=== PATIENT | male | born 1955 | race Caucasian/White ===

== ENCOUNTER 2016-05-10 05:35 | Emergency (ER) | payer OTHER ==
--- NOTE | 2016-05-11 02:30 | ED MAR SUMMARY ---
..... Medication Administration Record [facility] [address] [place], [place] [id number] Patient: TATYANA MATTHEWS Visit ID: [id number] 60y, M Weight: 113.3 kg Height/Length: 69 in BMI: 36.9 ALLERGIES: CONTRAST DYE
--- NOTE | 2016-05-11 02:30 | ED NURSING NOTES ---
Clinical Report - Nurses [facility] [address] [place] [address] 05/10/2016 5:37 Patient: TATYANA MATTHEWS TRIAGE Triage time 05:46. Acuity: LEVEL 4. Chief Complaint: RIGHT LOWER EXTREMITY PAIN. Location of symptoms- right hip. 05:50. Alert. --05:50 Andrea Jiménez R.N. 05:44 05/10/16. BP: 175/86. HR: 71. RR: 15. O2 saturation: 97% on room air. Temp: 99 F (oral). Pain level now: 10/12. --05:50 Andrea Jiménez R.N. Weight: 113.3 kg stated. Height/Length: 69 inches Per Patient. BMI: 36.9. --05:48 Andrea Jiménez R.N. Medications HCTZ 25mg, daily. --05:47 Andrea Jiménez R.N. Omeprazole Oral 40 mg, daily. --05:47 Andrea Jiménez R.N. Allergies CONTRAST DYE. --05:47 Andrea Jiménez R.N. History Arrived by private vehicle. Historian: patient. Unaccompanied. Primary physician (Rosaline). No injury occurred. This occurred (Started Sunday PM). 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 PAST MEDICAL HX: Tetanus status: up-to-date. Immunizations: up-to-date. SOCIAL HX: Never smoker. Occasional alcohol use. No drug use. No infectious disease exposure. ABUSE ASSESSMENT: No report of abuse. FALL RISK ASSESSMENT: Fall risk assessment completed. No fall risk identified. NUTRITIONAL RISK ASSESSMENT: The nutritional risk assessment revealed no deficiencies. FUNCTIONAL ASSESSMENT: Functional assessment: no impairments noted. LEARNING NEEDS ASSESSMENT: The learning needs assessment revealed no barriers. SKIN INTEGRITY ASSESSMENT: Skin integrity risk assessment completed. No skin integrity risk identified. --05:50 Andrea Jiménez R.N. PROBLEMS: Bronchitis. Prostatitis. Gastroesophageal Reflux Disease. Hypertension. --05:48 Andrea Jiménez R.N. ADDITIONAL SURGERIES: Tonsillectomy. --05:48 Andrea Jiménez R.N. Interventions ID band on patient. To treatment room. --05:50 Andrea Jiménez R.N. PHYSICAL ASSESSMENT 05:51. Ambulatory to room. Patient gowned. GENERAL / NEURO / PSYCH: Oriented X 4. Alert. EXTREMITIES: Neuro-vascular status intact to the extremity. SKIN: Skin intact. Skin is warm and dry. --05:51 Andrea Jiménez R.N. NURSING PROGRESS NOTES 05:51. Two patient identifiers checked. Call light placed in reach. Bed placed in lowest position. Brakes of bed on. Patient ready for evaluation- chart flagged. --05:51 Andrea Jiménez R.N. 06:10. The patient is calm and resting quietly. GENERAL / NEURO / PSYCH: Alert. Oriented X 4. RESPIRATORY: No respiratory distress. EXTREMITIES: Neuro-vascular status intact to the extremities. SKIN: Skin is warm and dry. --06:11 Andrea Jiménez R.N. DISPOSITION / DISCHARGE Departure time: 06:12. Condition at departure: stable. No learning barriers present. Discharge instructions provided and reviewed with the patient. Reviewed medication(s) side effects, precautions, dosing and course information. Prescription(s) given to the patient. Patient verbalized understanding. Written instructions provided in Telugu. The patient was discharged home and unaccompanied at time of discharge. He left the Emergency Department ambulatory and via private vehicle. Patient driving. FALL RISK ASSESSMENT: Fall risk assessment completed. No fall risk identified. --06:11 Andrea Jiménez R.N. 06:09 05/10/16. BP: 153/78. HR: 65. RR: 14. O2 saturation: 96% on room air. Pain level now: 09/11. --06:11 Andrea Jiménez R.N. ( Dr. Alba aware of pt BP prior to discharge). --06:12 Andrea Jiménez R.N. Locked/Released at 05/10/2016 6:18 by Andrea Jiménez R.N.
--- NOTE | 2016-05-11 02:30 | ED MAR SUMMARY ---
..... Medication Administration Record [facility] [address] [place], [place] [id number] Patient: TATYANA MATTHEWS Visit ID: [id number] 60y, M Weight: 113.3 kg Height/Length: 69 in BMI: 36.9 ALLERGIES: CONTRAST DYE
--- NOTE | 2016-05-11 02:30 | ED NURSING NOTES ---
Clinical Report - Nurses [facility] [address] [place] [address] 05/10/2016 5:37 Patient: TATYANA MATTHEWS TRIAGE Triage time 05:46. Acuity: LEVEL 4. Chief Complaint: RIGHT LOWER EXTREMITY PAIN. Location of symptoms- right hip. 05:50. Alert. --05:50 Andrea Jiménez R.N. 05:44 05/10/16. BP: 175/86. HR: 71. RR: 15. O2 saturation: 97% on room air. Temp: 99 F (oral). Pain level now: 10/12. --05:50 Andrea Jiménez R.N. Weight: 113.3 kg stated. Height/Length: 69 inches Per Patient. BMI: 36.9. --05:48 Andrea Jiménez R.N. Medications HCTZ 25mg, daily. --05:47 Andrea Jiménez R.N. Omeprazole Oral 40 mg, daily. --05:47 Andrea Jiménez R.N. Allergies CONTRAST DYE. --05:47 Andrea Jiménez R.N. History Arrived by private vehicle. Historian: patient. Unaccompanied. Primary physician (Rosaline). No injury occurred. This occurred (Started Sunday PM). 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 PAST MEDICAL HX: Tetanus status: up-to-date. Immunizations: up-to-date. SOCIAL HX: Never smoker. Occasional alcohol use. No drug use. No infectious disease exposure. ABUSE ASSESSMENT: No report of abuse. FALL RISK ASSESSMENT: Fall risk assessment completed. No fall risk identified. NUTRITIONAL RISK ASSESSMENT: The nutritional risk assessment revealed no deficiencies. FUNCTIONAL ASSESSMENT: Functional assessment: no impairments noted. LEARNING NEEDS ASSESSMENT: The learning needs assessment revealed no barriers. SKIN INTEGRITY ASSESSMENT: Skin integrity risk assessment completed. No skin integrity risk identified. --05:50 Andrea Jiménez R.N. PROBLEMS: Bronchitis. Prostatitis. Gastroesophageal Reflux Disease. Hypertension. --05:48 Andrea Jiménez R.N. ADDITIONAL SURGERIES: Tonsillectomy. --05:48 Andrea Jiménez R.N. Interventions ID band on patient. To treatment room. --05:50 Andrea Jiménez R.N. PHYSICAL ASSESSMENT 05:51. Ambulatory to room. Patient gowned. GENERAL / NEURO / PSYCH: Oriented X 4. Alert. EXTREMITIES: Neuro-vascular status intact to the extremity. SKIN: Skin intact. Skin is warm and dry. --05:51 Andrea Jiménez R.N. NURSING PROGRESS NOTES 05:51. Two patient identifiers checked. Call light placed in reach. Bed placed in lowest position. Brakes of bed on. Patient ready for evaluation- chart flagged. --05:51 Andrea Jiménez R.N. 06:10. The patient is calm and resting quietly. GENERAL / NEURO / PSYCH: Alert. Oriented X 4. RESPIRATORY: No respiratory distress. EXTREMITIES: Neuro-vascular status intact to the extremities. SKIN: Skin is warm and dry. --06:11 Andrea Jiménez R.N. DISPOSITION / DISCHARGE Departure time: 06:12. Condition at departure: stable. No learning barriers present. Discharge instructions provided and reviewed with the patient. Reviewed medication(s) side effects, precautions, dosing and course information. Prescription(s) given to the patient. Patient verbalized understanding. Written instructions provided in Azeri. The patient was discharged home and unaccompanied at time of discharge. He left the Emergency Department ambulatory and via private vehicle. Patient driving. FALL RISK ASSESSMENT: Fall risk assessment completed. No fall risk identified. --06:11 Andrea Jiménez R.N. 06:09 05/10/16. BP: 153/78. HR: 65. RR: 14. O2 saturation: 96% on room air. Pain level now: 09/11. --06:11 Andrea Jiménez R.N. ( Dr. Alba aware of pt BP prior to discharge). --06:12 Andrea Jiménez R.N. Locked/Released at 05/10/2016 6:18 by Andrea Jiménez R.N.
--- NOTE | 2016-05-11 02:30 | ED DISCHARGE INSTRUCTIONS ---
Patient: TATYANA MATTHEWS General Instructions [facility] VisitID: [id number] [address] [place] [address] 60y, M Registration Date/Time: 05/10/2016 Acute lumbar strain. Essential hypertension. INSTRUCTIONS Apply ice. No driving or operating machinery (while taking opiate medications or flexeril). Do not work for three days. Warnings: CONTROLLED SUBSTANCE WARNINGS. Further evaluation is necessary in order to conduct further tests (You may need an MRI of your back and / or physical therapy if not improving as expected - to be arranged by your primary care provider). It is very important to follow up with a physician. GENERAL WARNINGS: Return or contact your physician immediately if your condition worsens or changes unexpectedly, if not improving as expected, or if other problems arise. Your Current Medications: CONTINUE TAKING THE FOLLOWING MEDICATIONS: HCTZ* : 25mg daily. Omeprazole Oral : 40 mg daily. Prescription Medications: Hydrocodone/APAP 5mg / 325mg: take 1-2 orally every 8 hours as needed for pain. Dispense ten (10). No refill. Flexeril 10 mg: Take 1 orally every 8 hours as needed for muscle spasm. Dispense twenty (20). No refills. Substitution is permissible. Prednisone 20 mg: take 3 orally every day for 5 days. Dispense fifteen (15). No refills. OTC Medications: Acetaminophen (available over the counter): take according to label instructions. Motrin (available over the counter): take according to label instructions. Follow-up: Screening today revealed the patient's blood pressure to be in the hypertensive range. The patient should follow up with a primary care provider for blood pressure management. Follow-up with: Lamont Rhodes MD, [facility], , [address] [place], [place] [id number] Follow up in about two days. ADDITIONAL INFORMATION Back Pain [Acute Or Chronic] Back pain is usually caused by an injury to the muscles or ligaments of the spine. Sometimes the disks that separate each bone in the spine may bulge and cause pain by pressing on a nearby nerve. Back pain may also appear after a sudden twisting/bending force (such as in a car accident), after a simple awkward movement, or lifting something heavy with poor body positioning. In either case, muscle spasm is often present and adds to the pain. Acute back pain usually gets better in one to two weeks. Back pain related to disk disease, arthritis in the spinal joints or spinal stenosis (narrowing of the spinal canal) can become chronic and last for months or years. Unless you had a physical injury (for example, a car accident or fall) X-rays are usually not ordered for the initial evaluation of back pain. If pain continues and does not respond to medical treatment, x-rays and other tests may be performed at a later time. Home Care: You may need to stay in bed the first few days. But, as soon as possible, begin sitting or walking to avoid problems with prolonged bed rest (muscle weakness, worsening back stiffness and pain, blood clots in the legs). When in bed, try to find a position of comfort. A firm mattress is best. Try lying flat on your back with pillows under your knees. You can also try lying on your side with your knees bent up towards your chest and a pillow between your knees. Avoid prolonged sitting. This puts more stress on the lower back than standing or walking. During the first two days after injury, apply an ICE PACK to the painful area for 20 minutes every 2-4 hours. This will reduce swelling and pain. HEAT (hot shower, hot bath or heating pad) works well for muscle spasm. You can start with ice, then switch to heat after two days. Some patients feel best alternating ice and heat treatments. Use the one method that feels the best to you. You may use acetaminophen (Tylenol) or ibuprofen (Motrin, Advil) to control pain, unless another pain medicine was prescribed. [NOTE: If you have chronic liver or kidney disease or ever had a stomach ulcer or GI bleeding, talk with your doctor before using these medicines.] Be aware of safe lifting methods and do not lift anything over 15 pounds until all the pain is gone. Follow Up with your doctor or this facility if your symptoms do not start to improve after one week. Physical therapy may be needed. [NOTE: If X-rays were taken, they will be reviewed by a radiologist. You will be notified of any new findings that may affect your care.] Get Prompt Medical Attention if any of the following occur: Pain becomes worse or spreads to your legs Weakness or numbness in one or both legs Loss of bowel or bladder control Numbness in the groin or genital area High Blood Pressure --Established High Blood Pressure (Hypertension) is a chronic disease. The cause is unknown in most cases. It can usually be controlled with lifestyle changes and/or medicines. Symptoms of high blood pressure may include headache, dizziness, visual changes, chest pain and shortness of breath. Sometimes it causes no symptoms at all. However, even if there are no symptoms, untreated high blood pressure increases the risk of heart attack, also known as acute myocardial infarction, or AMI, and stroke. It is a serious health risk and should not be ignored. A normal blood pressure is 120/80 or less. The first (top) number is the "systolic" pressure. The second (bottom) number is the "diastolic" pressure. Hypertension exists when either the top number is 140 or higher, OR the bottom number is 90 or higher on repeated measurements. Home Care: All patients with high blood pressure should do the following to lower their pressure. If you are on medicines, then these methods may reduce or eliminate your need for medicines in the future. Begin a weight loss program if you are overweight. Reduce your salt intake. Avoid high salt foods (olives, pickles, smoked meats, salted potato chips, etc.). Do not add salt to your food at the table. Use only small amounts of salt when cooking. Begin an exercise program. Discuss with your doctor what type of exercise program would be best for you. It doesn't have to be difficult. Even brisk walking for 20 minutes three times a week is a good form of exercise. Avoid medicines which contain heart stimulants. This includes many cold and sinus decongestant pills and sprays as well as diet pills. Check the warnings about hypertension on the label. Stimulants such as amphetamine or cocaine could be lethal for someone with hypertension. Never take these. Limit your caffeine intake or switch to caffeine-free products. Stop smoking. If you are a long-time smoker, this can be hard. Enroll in a stop-smoking program to improve your chance of success. Learning how to handle stress better is an important part of any program to lower blood pressure. Learn about relaxation methods such as meditation, yoga or biofeedback. If medicines were prescribed, take them exactly as directed. Missing doses may cause your blood pressure get out of control. Consider buying an automatic blood pressure machine (available at most pharmacies). Use this to monitor your blood pressure at home and report the results to your doctor. Follow Up: Regular visits to your own physician for blood pressure checks and medicine adjustment is an important part of your care. Make a follow-up appointment as directed by our staff. Get Prompt Medical Attention if any of the following occur: Chest pain or shortness of breath Severe headache Throbbing or rushing sound in the ears Nosebleed Sudden severe abdominal pain Extreme drowsiness, confusion or fainting Dizziness or vertigo (dizziness with spinning sensation) Weakness of an arm or leg or one side of the face Difficulty with speech or vision Hydrocodone Bitartrate, Acetaminophen Oral tablet What is this medicine? ACETAMINOPHEN; HYDROCODONE (a set a ALEXANDRA scottie fen; michael droe KOE done) is a pain reliever. It is used to treat mild to moderate pain. How should I use this medicine? Take this medicine by mouth. Swallow it with a full glass of water. Follow the directions on the prescription label. If the medicine upsets your stomach, take the medicine with food or milk. Do not take more than you are told to take. Talk to your service dog trainer regarding the use of this medicine in children. This medicine is not approved for use in children. What side effects may I notice from receiving this medicine? Side effects that you should report to your doctor or health child care as soon as possible: allergic reactions like skin rash, itching or hives, swelling of the face, lips, or tongue breathing problems confusion feeling faint or lightheaded, falls stomach pain yellowing of the eyes or skin Side effects that usually do not require medical attention (report to your doctor or health child care if they continue or are bothersome): nausea, vomiting stomach upset What may interact with this medicine? alcohol antihistamines isoniazid medicines for depression, anxiety, or psychotic disturbances medicines for sleep muscle relaxants naltrexone narcotic medicines (opiates) for pain phenobarbital ritonavir tramadol What if I miss a dose? If you miss a dose, take it as soon as you can. If it is almost time for your next dose, take only that dose. Do not take double or extra doses. Where should I keep my medicine? Keep out of the reach of children. This medicine can be abused. Keep your medicine in a safe place to protect it from theft. Do not share this medicine with anyone. Selling or giving away this medicine is dangerous and against the law. Store at room temperature between 15 and 30 degrees C (59 and 86 degrees F). Protect from light. Keep container tightly closed. Throw away any unused medicine after the expiration date. Discard unused medicine and used packaging carefully. Pets and children can be harmed if they find used or lost packages. What should I tell my health care provider before I take this medicine? They need to know if you have any of these conditions: brain tumor Crohn's disease, inflammatory bowel disease, or ulcerative colitis drink more than 3 alcohol-containing drinks per day drug abuse or addiction head injury heart or circulation problems kidney disease or problems going to the bathroom liver disease lung disease, asthma, or breathing problems an unusual or allergic reaction to acetaminophen, hydrocodone, other opioid analgesics, other medicines, foods, dyes, or preservatives or trying to get breast-feeding What should I watch for while using this medicine? Tell your doctor or health child care if your pain does not go away, if it gets worse, or if you have new or a different type of pain. You may develop tolerance to the medicine. Tolerance means that you will need a higher dose of the medicine for pain relief. Tolerance is normal and is expected if you take the medicine for a long time. Do not suddenly stop taking your medicine because you may develop a severe reaction. Your body becomes used to the medicine. This does NOT mean you are addicted. Addiction is a behavior related to getting and using a drug for a non-medical reason. If you have pain, you have a medical reason to take pain medicine. Your doctor will tell you how much medicine to take. If your doctor wants you to stop the medicine, the dose will be slowly lowered over time to avoid any side effects. You may get drowsy or dizzy when you first start taking the medicine or change doses. Do not drive, use machinery, or do anything that may be dangerous until you know how the medicine affects you. Stand or sit up slowly. There are different types of narcotic medicines (opiates) for pain. If you take more than one type at the same time, you may have more side effects. Give your health care provider a list of all medicines you use. Your doctor will tell you how much medicine to take. Do not take more medicine than directed. Call emergency for help if you have problems breathing. The medicine will cause constipation. Try to have a bowel movement at least every 2 to 3 days. If you do not have a bowel movement for 3 days, call your doctor or health child care. Too much acetaminophen can be very dangerous. Do not take Tylenol (acetaminophen) or medicines that contain acetaminophen with this medicine. Many non-prescription medicines contain acetaminophen. Always read the labels carefully. Cyclobenzaprine Hydrochloride Oral tablet What is this medicine? CYCLOBENZAPRINE (zeinab dimas) is a muscle relaxer. It is used to treat muscle pain, spasms, and stiffness. How should I use this medicine? Take this medicine by mouth with a glass of water. Follow the directions on the prescription label. If this medicine upsets your stomach, take it with food or milk. Take your medicine at regular intervals. Do not take it more often than directed. Talk to your service dog trainer regarding the use of this medicine in children. Special care may be needed. What side effects may I notice from receiving this medicine? Side effects that you should report to your doctor or health child care as soon as possible: allergic reactions like skin rash, itching or hives, swelling of the face, lips, or tongue chest pain fast heartbeat hallucinations seizures vomiting Side effects that usually do not require medical attention (report to your doctor or health child care if they continue or are bothersome): headache What may interact with this medicine? Do not take this medicine with any of the following medications: cisapride droperidol flecainide grepafloxacin halofantrine levomethadyl MAOIs like Carbex, Eldepryl, Marplan, Nardil, and Parnate nilotinib pimozide probucol sertindole This medicine may also interact with the following medications: abarelix alcohol contrast dyes dolasetron guanethidine medicines for cancer medicines for depression, anxiety, or psychotic disturbances medicines to treat an irregular heartbeat medicines used for sleep or numbness during surgery or procedure methadone octreotide ondansetron palonosetron phenothiazines like chlorpromazine, mesoridazine, prochlorperazine, thioridazine some medicines for infection like alfuzosin, chloroquine, clarithromycin, levofloxacin, mefloquine, pentamidine, troleandomycin tramadol vardenafil What if I miss a dose? If you miss a dose, take it as soon as you can. If it is almost time for your next dose, take only that dose. Do not take double or extra doses. Where should I keep my medicine? Keep out of the reach of children. Store at room temperature between 15 and 30 degrees C (59 and 86 degrees F). Keep container tightly closed. Throw away any unused medicine after the expiration date. What should I tell my health care provider before I take this medicine? They need to know if you have any of these conditions: heart disease, irregular heartbeat, or previous heart attack liver disease thyroid problem an unusual or allergic reaction to cyclobenzaprine, tricyclic antidepressants, lactose, other medicines, foods, dyes, or preservatives or trying to get breast-feeding What should I watch for while using this medicine? Check with your doctor or health child care if your condition does not improve within 1 to 3 weeks. You may get drowsy or dizzy when you first start taking the medicine or change doses. Do not drive, use machinery, or do anything that may be dangerous until you know how the medicine affects you. Stand or sit up slowly. Your mouth may get dry. Drinking water, chewing sugarless gum, or sucking on hard candy may help. Prednisone Oral tablet What is this medicine? PREDNISONE (PRED ni sone) is a corticosteroid. It is commonly used to treat inflammation of the skin, joints, lungs, and other organs. Common conditions treated include asthma, allergies, and arthritis. It is also used for other conditions, such as blood disorders and diseases of the adrenal glands. How should I use this medicine? Take this medicine by mouth with a glass of water. Follow the directions on the prescription label. Take this medicine with food. If you are taking this medicine once a day, take it in the morning. Do not take more medicine than you are told to take. Do not suddenly stop taking your medicine because you may develop a severe reaction. Your doctor will tell you how much medicine to take. If your doctor wants you to stop the medicine, the dose may be slowly lowered over time to avoid any side effects. Talk to your service dog trainer regarding the use of this medicine in children. Special care may be needed. What side effects may I notice from receiving this medicine? Side effects that you should report to your doctor or health child care as soon as possible: allergic reactions like skin rash, itching or hives, swelling of the face, lips, or tongue changes in emotions or moods changes in vision depressed mood eye pain fever or chills, cough, sore throat, pain or difficulty passing urine increased thirst swelling of ankles, feet Side effects that usually do not require medical attention (report to your doctor or health child care if they continue or are bothersome): confusion, excitement, restlessness headache nausea, vomiting skin problems, acne, thin and shiny skin trouble sleeping weight gain What may interact with this medicine? Do not take this medicine with any of the following medications: metyrapone mifepristone This medicine may also interact with the following medications: aminoglutethimide amphotericin B aspirin and aspirin-like medicines barbiturates certain medicines for diabetes, like glipizide or glyburide cholestyramine cholinesterase inhibitors cyclosporine digoxin diuretics ephedrine female hormones, like estrogens and control pills isoniazid ketoconazole NSAIDS, medicines for pain and inflammation, like ibuprofen or naproxen phenytoin rifampin toxoids vaccines warfarin What if I miss a dose? If you miss a dose, take it as soon as you can. If it is almost time for your next dose, talk to your doctor or health child care. You may need to miss a dose or take an extra dose. Do not take double or extra doses without advice. Where should I keep my medicine? Keep out of the reach of children. Store at room temperature between 15 and 30 degrees C (59 and 86 degrees F). Protect from light. Keep container tightly closed. Throw away any unused medicine after the expiration date. What should I tell my health care provider before I take this medicine? They need to know if you have any of these conditions: Chelsi's syndrome diabetes glaucoma heart disease high blood pressure infection (especially a virus infection such as chickenpox, cold sores, or herpes) kidney disease liver disease mental illness myasthenia gravis osteoporosis seizures stomach or intestine problems thyroid disease an unusual or allergic reaction to lactose, prednisone, other medicines, foods, dyes, or preservatives or trying to get breast-feeding What should I watch for while using this medicine? Visit your doctor or health child care for regular checks on your progress. If you are taking this medicine over a prolonged period, carry an identification card with your name and address, the type and dose of your medicine, and your doctor's name and address. This medicine may increase your risk of getting an infection. Tell your doctor or health child care if you are around anyone with measles or chickenpox, or if you develop sores or blisters that do not heal properly. If you are going to have surgery, tell your doctor or health child care that you have taken this medicine within the last twelve months. Ask your doctor or health child care about your diet. You may need to lower the amount of salt you eat. This medicine may affect blood sugar levels. If you have diabetes, check with your doctor or health child care before you change your diet or the dose of your diabetic medicine. You have been given the following additional information: Back Pain (Acute Or Chronic) Hypertension, Established Hydrocodone Bitartrate, Acetaminophen Oral tablet Cyclobenzaprine Hydrochloride Oral tablet Prednisone Oral tablet No driving or operating machinery (while taking opiate medications or flexeril). Do not work for three days. (Electronically signed by Florentino Alba DO 05/10/2016 6:22)
--- NOTE | 2016-05-11 02:30 | ED CLINICAL REPORT ---
Clinical Report - Physicians/Mid Levels [facility] [address] [place] [address] 05/10/2016 5:37 Patient: TATYANA MATTHEWS Time Seen: 05:57. Arrived- By private vehicle. Historian- patient. HISTORY OF PRESENT ILLNESS Chief Complaint: BACK PAIN. Onset was yesterday and it is still present. It was gradual in onset and has been waxing/waning. Modifying factors- worsened by walking, rotation of the body, bending over or lifting. Relieved by remaining still. It is described as being moderate in degree and in the area of the right lower lumbar spine, right SI joint and right gluteus. The quality is noted to be "pain" and similar to prior episodes. No radiation. No bladder dysfunction, bowel dysfunction, sensory loss or motor loss. Patient notes the possibility of an injury but denies injury to the head or neck. Mechanism of injury- he was lifting, turning and bending. Occurred at home and work. No other injury. Similar symptoms previously: Recent medical care: Not recently seen/assessed. REVIEW OF SYSTEMS No fever, chills, difficulty with urination, urinary frequency or hematuria. No skin rash, headache, sore throat, cough or difficulty breathing. No chest pain, abdominal pain, nausea, vomiting or diarrhea. No black stools or bloody stools. All systems otherwise negative, except as recorded above. PAST HISTORY PCP: Dr Rhodes Problems: Bronchitis. Prostatitis. "Borderline Asthma" Gastroesophageal Reflux Disease. Ankle Fracture. Hypertension. Sprained ankle. Obstructive Sleep Apnea Surgeries: Tonsillectomy. Medications: Omeprazole Oral 40 mg, daily. HCTZ 25mg, daily. Allergies: CONTRAST DYE. SOCIAL HISTORY Never smoker. Occasional alcohol use. No drug use. ADDITIONAL NOTES The nursing notes have been reviewed. PHYSICAL EXAM Vital Signs: 05/10/2016 05:44 BP: 175/86. HR: 71. RR: 15. O2 saturation: 97%. Temp: 99 F. Pain level now: 8/10. Appearance: Alert. No acute distress. HEENT: Normal external inspection. Eyes: Pupils equal, round and reactive to light. Neck: Normal inspection. Neck nontender. Painless ROM. CVS: Heart sounds normal. Pulses normal. Respiratory: No respiratory distress. Breath sounds normal. Abdomen: No visible injury. Soft and nontender. No mass. Obese. Back: Normal inspection. Moderate soft tissue tenderness in the right lower lumbar area. No vertebral point tenderness. Skin: Skin warm and dry. Normal skin color. No rash. Normal skin turgor. Extremities: Extremities exhibit normal ROM. Extremities nontender. Right hip. Neurovascular intact distally. No tenderness. No limitation in ROM. The right leg is not shortened, externally rotated, internally rotated, flexed or adducted. The right leg is not abducted. Neuro: Oriented X 3. Mood/affect normal. No motor deficit. No sensory deficit. Straight leg raising: negative on the right and negative on the left. Reflexes normal. Reflex exam: right patellar 2+, left patellar 2+, right Achilles 1+ and left Achilles 1+. PROGRESS AND PROCEDURES Course of Care: No signs of cord compression. No reason to suspect spinal / epidural infectious process / discitis. No signs of UTI, stone or AAA. Labs not indicated clinically now. Pt may need PT and / or MRI if not improving as expected - he is informed of this. Given signs and symptoms to watch for and return for. Patient/family counseled. Old ED records reviewed. Disposition: Discharged. Condition: stable and improved. CLINICAL IMPRESSION Acute lumbar strain. Essential hypertension. INSTRUCTIONS Apply ice. No driving or operating machinery (while taking opiate medications or flexeril). Do not work for three days. Warnings: CONTROLLED SUBSTANCE WARNINGS. Further evaluation is necessary in order to conduct further tests (You may need an MRI of your back and / or physical therapy if not improving as expected - to be arranged by your primary care provider). It is very important to follow up with a physician. GENERAL WARNINGS: Return or contact your physician immediately if your condition worsens or changes unexpectedly, if not improving as expected, or if other problems arise. Your Current Medications: CONTINUE TAKING THE FOLLOWING MEDICATIONS: HCTZ* : 25mg daily. Omeprazole Oral : 40 mg daily. Prescription Medications: Hydrocodone/APAP 5mg / 325mg: take 1-2 orally every 8 hours as needed for pain. Dispense ten (10). No refill. Flexeril 10 mg: Take 1 orally every 8 hours as needed for muscle spasm. Dispense twenty (20). No refills. Substitution is permissible. Prednisone 20 mg: take 3 orally every day for 5 days. Dispense fifteen (15). No refills. OTC Medications: Acetaminophen (available over the counter): take according to label instructions. Motrin (available over the counter): take according to label instructions. Follow-up: Screening today revealed the patient's blood pressure to be in the hypertensive range. The patient should follow up with a primary care provider for blood pressure management. Follow-up with: Lamont Rhodes MD, [facility], , [address] [place] [id number] Follow up in about two days. (Electronically signed by Florentino Alba DO 05/10/2016 6:22)
--- NOTE | 2016-05-11 02:30 | ED DISCHARGE INSTRUCTIONS ---
Patient: TATYANA MATTHEWS General Instructions [facility] VisitID: [id number] [address] [place] [address] 60y, M Registration Date/Time: 05/10/2016 Acute lumbar strain. Essential hypertension. INSTRUCTIONS Apply ice. No driving or operating machinery (while taking opiate medications or flexeril). Do not work for three days. Warnings: CONTROLLED SUBSTANCE WARNINGS. Further evaluation is necessary in order to conduct further tests (You may need an MRI of your back and / or physical therapy if not improving as expected - to be arranged by your primary care provider). It is very important to follow up with a physician. GENERAL WARNINGS: Return or contact your physician immediately if your condition worsens or changes unexpectedly, if not improving as expected, or if other problems arise. Your Current Medications: CONTINUE TAKING THE FOLLOWING MEDICATIONS: HCTZ* : 25mg daily. Omeprazole Oral : 40 mg daily. Prescription Medications: Hydrocodone/APAP 5mg / 325mg: take 1-2 orally every 8 hours as needed for pain. Dispense ten (10). No refill. Flexeril 10 mg: Take 1 orally every 8 hours as needed for muscle spasm. Dispense twenty (20). No refills. Substitution is permissible. Prednisone 20 mg: take 3 orally every day for 5 days. Dispense fifteen (15). No refills. OTC Medications: Acetaminophen (available over the counter): take according to label instructions. Motrin (available over the counter): take according to label instructions. Follow-up: Screening today revealed the patient's blood pressure to be in the hypertensive range. The patient should follow up with a primary care provider for blood pressure management. Follow-up with: Lamont Rhodes MD, [facility], , [address] [place], [place] [id number] Follow up in about two days. ADDITIONAL INFORMATION Back Pain [Acute Or Chronic] Back pain is usually caused by an injury to the muscles or ligaments of the spine. Sometimes the disks that separate each bone in the spine may bulge and cause pain by pressing on a nearby nerve. Back pain may also appear after a sudden twisting/bending force (such as in a car accident), after a simple awkward movement, or lifting something heavy with poor body positioning. In either case, muscle spasm is often present and adds to the pain. Acute back pain usually gets better in one to two weeks. Back pain related to disk disease, arthritis in the spinal joints or spinal stenosis (narrowing of the spinal canal) can become chronic and last for months or years. Unless you had a physical injury (for example, a car accident or fall) X-rays are usually not ordered for the initial evaluation of back pain. If pain continues and does not respond to medical treatment, x-rays and other tests may be performed at a later time. Home Care: You may need to stay in bed the first few days. But, as soon as possible, begin sitting or walking to avoid problems with prolonged bed rest (muscle weakness, worsening back stiffness and pain, blood clots in the legs). When in bed, try to find a position of comfort. A firm mattress is best. Try lying flat on your back with pillows under your knees. You can also try lying on your side with your knees bent up towards your chest and a pillow between your knees. Avoid prolonged sitting. This puts more stress on the lower back than standing or walking. During the first two days after injury, apply an ICE PACK to the painful area for 20 minutes every 2-4 hours. This will reduce swelling and pain. HEAT (hot shower, hot bath or heating pad) works well for muscle spasm. You can start with ice, then switch to heat after two days. Some patients feel best alternating ice and heat treatments. Use the one method that feels the best to you. You may use acetaminophen (Tylenol) or ibuprofen (Motrin, Advil) to control pain, unless another pain medicine was prescribed. [NOTE: If you have chronic liver or kidney disease or ever had a stomach ulcer or GI bleeding, talk with your doctor before using these medicines.] Be aware of safe lifting methods and do not lift anything over 15 pounds until all the pain is gone. Follow Up with your doctor or this facility if your symptoms do not start to improve after one week. Physical therapy may be needed. [NOTE: If X-rays were taken, they will be reviewed by a radiologist. You will be notified of any new findings that may affect your care.] Get Prompt Medical Attention if any of the following occur: Pain becomes worse or spreads to your legs Weakness or numbness in one or both legs Loss of bowel or bladder control Numbness in the groin or genital area High Blood Pressure --Established High Blood Pressure (Hypertension) is a chronic disease. The cause is unknown in most cases. It can usually be controlled with lifestyle changes and/or medicines. Symptoms of high blood pressure may include headache, dizziness, visual changes, chest pain and shortness of breath. Sometimes it causes no symptoms at all. However, even if there are no symptoms, untreated high blood pressure increases the risk of heart attack, also known as acute myocardial infarction, or AMI, and stroke. It is a serious health risk and should not be ignored. A normal blood pressure is 120/80 or less. The first (top) number is the "systolic" pressure. The second (bottom) number is the "diastolic" pressure. Hypertension exists when either the top number is 140 or higher, OR the bottom number is 90 or higher on repeated measurements. Home Care: All patients with high blood pressure should do the following to lower their pressure. If you are on medicines, then these methods may reduce or eliminate your need for medicines in the future. Begin a weight loss program if you are overweight. Reduce your salt intake. Avoid high salt foods (olives, pickles, smoked meats, salted potato chips, etc.). Do not add salt to your food at the table. Use only small amounts of salt when cooking. Begin an exercise program. Discuss with your doctor what type of exercise program would be best for you. It doesn't have to be difficult. Even brisk walking for 20 minutes three times a week is a good form of exercise. Avoid medicines which contain heart stimulants. This includes many cold and sinus decongestant pills and sprays as well as diet pills. Check the warnings about hypertension on the label. Stimulants such as amphetamine or cocaine could be lethal for someone with hypertension. Never take these. Limit your caffeine intake or switch to caffeine-free products. Stop smoking. If you are a long-time smoker, this can be hard. Enroll in a stop-smoking program to improve your chance of success. Learning how to handle stress better is an important part of any program to lower blood pressure. Learn about relaxation methods such as meditation, yoga or biofeedback. If medicines were prescribed, take them exactly as directed. Missing doses may cause your blood pressure get out of control. Consider buying an automatic blood pressure machine (available at most pharmacies). Use this to monitor your blood pressure at home and report the results to your doctor. Follow Up: Regular visits to your own physician for blood pressure checks and medicine adjustment is an important part of your care. Make a follow-up appointment as directed by our staff. Get Prompt Medical Attention if any of the following occur: Chest pain or shortness of breath Severe headache Throbbing or rushing sound in the ears Nosebleed Sudden severe abdominal pain Extreme drowsiness, confusion or fainting Dizziness or vertigo (dizziness with spinning sensation) Weakness of an arm or leg or one side of the face Difficulty with speech or vision Hydrocodone Bitartrate, Acetaminophen Oral tablet What is this medicine? ACETAMINOPHEN; HYDROCODONE (a set a ALEXANDRA scottie fen; michael droe KOE done) is a pain reliever. It is used to treat mild to moderate pain. How should I use this medicine? Take this medicine by mouth. Swallow it with a full glass of water. Follow the directions on the prescription label. If the medicine upsets your stomach, take the medicine with food or milk. Do not take more than you are told to take. Talk to your vapor coater regarding the use of this medicine in children. This medicine is not approved for use in children. What side effects may I notice from receiving this medicine? Side effects that you should report to your doctor or health transitional care manager as soon as possible: allergic reactions like skin rash, itching or hives, swelling of the face, lips, or tongue breathing problems confusion feeling faint or lightheaded, falls stomach pain yellowing of the eyes or skin Side effects that usually do not require medical attention (report to your doctor or health transitional care manager if they continue or are bothersome): nausea, vomiting stomach upset What may interact with this medicine? alcohol antihistamines isoniazid medicines for depression, anxiety, or psychotic disturbances medicines for sleep muscle relaxants naltrexone narcotic medicines (opiates) for pain phenobarbital ritonavir tramadol What if I miss a dose? If you miss a dose, take it as soon as you can. If it is almost time for your next dose, take only that dose. Do not take double or extra doses. Where should I keep my medicine? Keep out of the reach of children. This medicine can be abused. Keep your medicine in a safe place to protect it from theft. Do not share this medicine with anyone. Selling or giving away this medicine is dangerous and against the law. Store at room temperature between 15 and 30 degrees C (59 and 86 degrees F). Protect from light. Keep container tightly closed. Throw away any unused medicine after the expiration date. Discard unused medicine and used packaging carefully. Pets and children can be harmed if they find used or lost packages. What should I tell my health care provider before I take this medicine? They need to know if you have any of these conditions: brain tumor Crohn's disease, inflammatory bowel disease, or ulcerative colitis drink more than 3 alcohol-containing drinks per day drug abuse or addiction head injury heart or circulation problems kidney disease or problems going to the bathroom liver disease lung disease, asthma, or breathing problems an unusual or allergic reaction to acetaminophen, hydrocodone, other opioid analgesics, other medicines, foods, dyes, or preservatives or trying to get breast-feeding What should I watch for while using this medicine? Tell your doctor or health transitional care manager if your pain does not go away, if it gets worse, or if you have new or a different type of pain. You may develop tolerance to the medicine. Tolerance means that you will need a higher dose of the medicine for pain relief. Tolerance is normal and is expected if you take the medicine for a long time. Do not suddenly stop taking your medicine because you may develop a severe reaction. Your body becomes used to the medicine. This does NOT mean you are addicted. Addiction is a behavior related to getting and using a drug for a non-medical reason. If you have pain, you have a medical reason to take pain medicine. Your doctor will tell you how much medicine to take. If your doctor wants you to stop the medicine, the dose will be slowly lowered over time to avoid any side effects. You may get drowsy or dizzy when you first start taking the medicine or change doses. Do not drive, use machinery, or do anything that may be dangerous until you know how the medicine affects you. Stand or sit up slowly. There are different types of narcotic medicines (opiates) for pain. If you take more than one type at the same time, you may have more side effects. Give your health care provider a list of all medicines you use. Your doctor will tell you how much medicine to take. Do not take more medicine than directed. Call emergency for help if you have problems breathing. The medicine will cause constipation. Try to have a bowel movement at least every 2 to 3 days. If you do not have a bowel movement for 3 days, call your doctor or health transitional care manager. Too much acetaminophen can be very dangerous. Do not take Tylenol (acetaminophen) or medicines that contain acetaminophen with this medicine. Many non-prescription medicines contain acetaminophen. Always read the labels carefully. Cyclobenzaprine Hydrochloride Oral tablet What is this medicine? CYCLOBENZAPRINE (zeinab dimas) is a muscle relaxer. It is used to treat muscle pain, spasms, and stiffness. How should I use this medicine? Take this medicine by mouth with a glass of water. Follow the directions on the prescription label. If this medicine upsets your stomach, take it with food or milk. Take your medicine at regular intervals. Do not take it more often than directed. Talk to your vapor coater regarding the use of this medicine in children. Special care may be needed. What side effects may I notice from receiving this medicine? Side effects that you should report to your doctor or health transitional care manager as soon as possible: allergic reactions like skin rash, itching or hives, swelling of the face, lips, or tongue chest pain fast heartbeat hallucinations seizures vomiting Side effects that usually do not require medical attention (report to your doctor or health transitional care manager if they continue or are bothersome): headache What may interact with this medicine? Do not take this medicine with any of the following medications: cisapride droperidol flecainide grepafloxacin halofantrine levomethadyl MAOIs like Carbex, Eldepryl, Marplan, Nardil, and Parnate nilotinib pimozide probucol sertindole This medicine may also interact with the following medications: abarelix alcohol contrast dyes dolasetron guanethidine medicines for cancer medicines for depression, anxiety, or psychotic disturbances medicines to treat an irregular heartbeat medicines used for sleep or numbness during surgery or procedure methadone octreotide ondansetron palonosetron phenothiazines like chlorpromazine, mesoridazine, prochlorperazine, thioridazine some medicines for infection like alfuzosin, chloroquine, clarithromycin, levofloxacin, mefloquine, pentamidine, troleandomycin tramadol vardenafil What if I miss a dose? If you miss a dose, take it as soon as you can. If it is almost time for your next dose, take only that dose. Do not take double or extra doses. Where should I keep my medicine? Keep out of the reach of children. Store at room temperature between 15 and 30 degrees C (59 and 86 degrees F). Keep container tightly closed. Throw away any unused medicine after the expiration date. What should I tell my health care provider before I take this medicine? They need to know if you have any of these conditions: heart disease, irregular heartbeat, or previous heart attack liver disease thyroid problem an unusual or allergic reaction to cyclobenzaprine, tricyclic antidepressants, lactose, other medicines, foods, dyes, or preservatives or trying to get breast-feeding What should I watch for while using this medicine? Check with your doctor or health transitional care manager if your condition does not improve within 1 to 3 weeks. You may get drowsy or dizzy when you first start taking the medicine or change doses. Do not drive, use machinery, or do anything that may be dangerous until you know how the medicine affects you. Stand or sit up slowly. Your mouth may get dry. Drinking water, chewing sugarless gum, or sucking on hard candy may help. Prednisone Oral tablet What is this medicine? PREDNISONE (PRED ni sone) is a corticosteroid. It is commonly used to treat inflammation of the skin, joints, lungs, and other organs. Common conditions treated include asthma, allergies, and arthritis. It is also used for other conditions, such as blood disorders and diseases of the adrenal glands. How should I use this medicine? Take this medicine by mouth with a glass of water. Follow the directions on the prescription label. Take this medicine with food. If you are taking this medicine once a day, take it in the morning. Do not take more medicine than you are told to take. Do not suddenly stop taking your medicine because you may develop a severe reaction. Your doctor will tell you how much medicine to take. If your doctor wants you to stop the medicine, the dose may be slowly lowered over time to avoid any side effects. Talk to your vapor coater regarding the use of this medicine in children. Special care may be needed. What side effects may I notice from receiving this medicine? Side effects that you should report to your doctor or health transitional care manager as soon as possible: allergic reactions like skin rash, itching or hives, swelling of the face, lips, or tongue changes in emotions or moods changes in vision depressed mood eye pain fever or chills, cough, sore throat, pain or difficulty passing urine increased thirst swelling of ankles, feet Side effects that usually do not require medical attention (report to your doctor or health transitional care manager if they continue or are bothersome): confusion, excitement, restlessness headache nausea, vomiting skin problems, acne, thin and shiny skin trouble sleeping weight gain What may interact with this medicine? Do not take this medicine with any of the following medications: metyrapone mifepristone This medicine may also interact with the following medications: aminoglutethimide amphotericin B aspirin and aspirin-like medicines barbiturates certain medicines for diabetes, like glipizide or glyburide cholestyramine cholinesterase inhibitors cyclosporine digoxin diuretics ephedrine female hormones, like estrogens and control pills isoniazid ketoconazole NSAIDS, medicines for pain and inflammation, like ibuprofen or naproxen phenytoin rifampin toxoids vaccines warfarin What if I miss a dose? If you miss a dose, take it as soon as you can. If it is almost time for your next dose, talk to your doctor or health transitional care manager. You may need to miss a dose or take an extra dose. Do not take double or extra doses without advice. Where should I keep my medicine? Keep out of the reach of children. Store at room temperature between 15 and 30 degrees C (59 and 86 degrees F). Protect from light. Keep container tightly closed. Throw away any unused medicine after the expiration date. What should I tell my health care provider before I take this medicine? They need to know if you have any of these conditions: Chelsi's syndrome diabetes glaucoma heart disease high blood pressure infection (especially a virus infection such as chickenpox, cold sores, or herpes) kidney disease liver disease mental illness myasthenia gravis osteoporosis seizures stomach or intestine problems thyroid disease an unusual or allergic reaction to lactose, prednisone, other medicines, foods, dyes, or preservatives or trying to get breast-feeding What should I watch for while using this medicine? Visit your doctor or health transitional care manager for regular checks on your progress. If you are taking this medicine over a prolonged period, carry an identification card with your name and address, the type and dose of your medicine, and your doctor's name and address. This medicine may increase your risk of getting an infection. Tell your doctor or health transitional care manager if you are around anyone with measles or chickenpox, or if you develop sores or blisters that do not heal properly. If you are going to have surgery, tell your doctor or health transitional care manager that you have taken this medicine within the last twelve months. Ask your doctor or health transitional care manager about your diet. You may need to lower the amount of salt you eat. This medicine may affect blood sugar levels. If you have diabetes, check with your doctor or health transitional care manager before you change your diet or the dose of your diabetic medicine. You have been given the following additional information: Back Pain (Acute Or Chronic) Hypertension, Established Hydrocodone Bitartrate, Acetaminophen Oral tablet Cyclobenzaprine Hydrochloride Oral tablet Prednisone Oral tablet No driving or operating machinery (while taking opiate medications or flexeril). Do not work for three days. (Electronically signed by Florentino Alba DO 05/10/2016 6:22)
--- NOTE | 2016-05-11 02:30 | ED CLINICAL REPORT ---
Clinical Report - Physicians/Mid Levels [facility] [address] [place] [address] 05/10/2016 5:37 Patient: TATYANA MATTHEWS Time Seen: 05:57. Arrived- By private vehicle. Historian- patient. HISTORY OF PRESENT ILLNESS Chief Complaint: BACK PAIN. Onset was yesterday and it is still present. It was gradual in onset and has been waxing/waning. Modifying factors- worsened by walking, rotation of the body, bending over or lifting. Relieved by remaining still. It is described as being moderate in degree and in the area of the right lower lumbar spine, right SI joint and right gluteus. The quality is noted to be "pain" and similar to prior episodes. No radiation. No bladder dysfunction, bowel dysfunction, sensory loss or motor loss. Patient notes the possibility of an injury but denies injury to the head or neck. Mechanism of injury- he was lifting, turning and bending. Occurred at home and work. No other injury. Similar symptoms previously: Recent medical care: Not recently seen/assessed. REVIEW OF SYSTEMS No fever, chills, difficulty with urination, urinary frequency or hematuria. No skin rash, headache, sore throat, cough or difficulty breathing. No chest pain, abdominal pain, nausea, vomiting or diarrhea. No black stools or bloody stools. All systems otherwise negative, except as recorded above. PAST HISTORY PCP: Dr Rhodes Problems: Bronchitis. Prostatitis. "Borderline Asthma" Gastroesophageal Reflux Disease. Ankle Fracture. Hypertension. Sprained ankle. Obstructive Sleep Apnea Surgeries: Tonsillectomy. Medications: Omeprazole Oral 40 mg, daily. HCTZ 25mg, daily. Allergies: CONTRAST DYE. SOCIAL HISTORY Never smoker. Occasional alcohol use. No drug use. ADDITIONAL NOTES The nursing notes have been reviewed. PHYSICAL EXAM Vital Signs: 05/10/2016 05:44 BP: 175/86. HR: 71. RR: 15. O2 saturation: 97%. Temp: 99 F. Pain level now: 8/10. Appearance: Alert. No acute distress. HEENT: Normal external inspection. Eyes: Pupils equal, round and reactive to light. Neck: Normal inspection. Neck nontender. Painless ROM. CVS: Heart sounds normal. Pulses normal. Respiratory: No respiratory distress. Breath sounds normal. Abdomen: No visible injury. Soft and nontender. No mass. Obese. Back: Normal inspection. Moderate soft tissue tenderness in the right lower lumbar area. No vertebral point tenderness. Skin: Skin warm and dry. Normal skin color. No rash. Normal skin turgor. Extremities: Extremities exhibit normal ROM. Extremities nontender. Right hip. Neurovascular intact distally. No tenderness. No limitation in ROM. The right leg is not shortened, externally rotated, internally rotated, flexed or adducted. The right leg is not abducted. Neuro: Oriented X 3. Mood/affect normal. No motor deficit. No sensory deficit. Straight leg raising: negative on the right and negative on the left. Reflexes normal. Reflex exam: right patellar 2+, left patellar 2+, right Achilles 1+ and left Achilles 1+. PROGRESS AND PROCEDURES Course of Care: No signs of cord compression. No reason to suspect spinal / epidural infectious process / discitis. No signs of UTI, stone or AAA. Labs not indicated clinically now. Pt may need PT and / or MRI if not improving as expected - he is informed of this. Given signs and symptoms to watch for and return for. Patient/family counseled. Old ED records reviewed. Disposition: Discharged. Condition: stable and improved. CLINICAL IMPRESSION Acute lumbar strain. Essential hypertension. INSTRUCTIONS Apply ice. No driving or operating machinery (while taking opiate medications or flexeril). Do not work for three days. Warnings: CONTROLLED SUBSTANCE WARNINGS. Further evaluation is necessary in order to conduct further tests (You may need an MRI of your back and / or physical therapy if not improving as expected - to be arranged by your primary care provider). It is very important to follow up with a physician. GENERAL WARNINGS: Return or contact your physician immediately if your condition worsens or changes unexpectedly, if not improving as expected, or if other problems arise. Your Current Medications: CONTINUE TAKING THE FOLLOWING MEDICATIONS: HCTZ* : 25mg daily. Omeprazole Oral : 40 mg daily. Prescription Medications: Hydrocodone/APAP 5mg / 325mg: take 1-2 orally every 8 hours as needed for pain. Dispense ten (10). No refill. Flexeril 10 mg: Take 1 orally every 8 hours as needed for muscle spasm. Dispense twenty (20). No refills. Substitution is permissible. Prednisone 20 mg: take 3 orally every day for 5 days. Dispense fifteen (15). No refills. OTC Medications: Acetaminophen (available over the counter): take according to label instructions. Motrin (available over the counter): take according to label instructions. Follow-up: Screening today revealed the patient's blood pressure to be in the hypertensive range. The patient should follow up with a primary care provider for blood pressure management. Follow-up with: Lamont Rhodes MD, [facility], , [address] [place] [id number] Follow up in about two days. (Electronically signed by Florentino Alba DO 05/10/2016 6:22)
--- NOTE | 2016-05-11 02:31 | ED MED RECONCILIATION SUMMARY ---
Patient: TATYANA MATTHEWS Medication Reconciliation Report [facility] VisitID: [id number] [address] [place] [address] 60y, M Registration Date/Time: 05/10/2016 Weight: 113.3 kg Height/Length: 69 in. BMI: 36.9 ALLERGIES: CONTRAST DYE The patient's Home Medications are listed below: CONTINUE TAKING THE FOLLOWING MEDICATIONS: HCTZ 25mg, daily Omeprazole Oral 40 mg, daily The source(s) of the original Home Medication information: Not obtained. The following Medications were given to the patient in the Emergency Department: None. The following Medications were prescribed to the patient: Acetaminophen (available over the counter): take according to label instructions. -- Florentino Alba DO Motrin (available over the counter): take according to label instructions. -- Florentino Alba DO Hydrocodone/APAP 5mg / 325mg: take 1-2 orally every 8 hours as needed for pain. Dispense ten (10). No refill. -- Florentino Alba DO Flexeril 10 mg: Take 1 orally every 8 hours as needed for muscle spasm. Dispense twenty (20). No refills. Substitution is permissible. -- Florentino Alba DO Prednisone 20 mg: take 3 orally every day for 5 days. Dispense fifteen (15). No refills. -- Florentino Alba DO
--- NOTE | 2016-05-11 02:31 | ED MED RECONCILIATION SUMMARY ---
Patient: TATYANA MATTHEWS Medication Reconciliation Report [facility] VisitID: [id number] [address] [place] [address] 60y, M Registration Date/Time: 05/10/2016 Weight: 113.3 kg Height/Length: 69 in. BMI: 36.9 ALLERGIES: CONTRAST DYE The patient's Home Medications are listed below: CONTINUE TAKING THE FOLLOWING MEDICATIONS: HCTZ 25mg, daily Omeprazole Oral 40 mg, daily The source(s) of the original Home Medication information: Not obtained. The following Medications were given to the patient in the Emergency Department: None. The following Medications were prescribed to the patient: Acetaminophen (available over the counter): take according to label instructions. -- Florentino Alba DO Motrin (available over the counter): take according to label instructions. -- Florentino Alba DO Hydrocodone/APAP 5mg / 325mg: take 1-2 orally every 8 hours as needed for pain. Dispense ten (10). No refill. -- Florentino Alba DO Flexeril 10 mg: Take 1 orally every 8 hours as needed for muscle spasm. Dispense twenty (20). No refills. Substitution is permissible. -- Florentino Alba DO Prednisone 20 mg: take 3 orally every day for 5 days. Dispense fifteen (15). No refills. -- Florentino Alba DO
== END 2016-05-10 06:12 | disposition home or self-care (01) ==
LOC: ED SRH 05:35
DX: S39.012A Strain of muscle, fascia and tendon of lower back, initial encounter (principal); I10 Essential (primary) hypertension; X50.1XXA Overexertion from prolonged static or awkward postures, initial encounter; Y92.009 Unspecified place in unspecified non-institutional (private) residence as the place of occurrence of the external cause; Y93.89 Activity, other specified; Y99.9 Unspecified external cause status; Z79.899 Other long term (current) drug therapy; Z91.041 Radiographic dye allergy status